=== PATIENT | male | born 1985 | race Caucasian/White ===

== ENCOUNTER 2017-02-11 21:50 | Emergency (ER) | payer OTHER ==
--- NOTE | ~2017-02-11 | ER ---
PATIENT'S NAME: J[facility]EL [facility] AGE: 31 Y [address] ROOM: [place], [place] [address] LOCATION: [facility] ADMIT DATE: 02/11/2017 ER/Outpatient Report DISCHARGE DATE: 02/12/2017 FAMILY PHYSICIAN: PHYSICIAN, NO ATTENDING PHYSICIAN: Joey Mccain Time of Arrival: 2150 hours. Time of Evaluation: 2210 hours. CHIEF COMPLAINT: Body aches, congestion, cough. HISTORY OF PRESENT ILLNESS: This is a 31-year-old male, who presents to the ER. He states he has not been feeling well for the past several days. He states that he was recently in [place] on a trip, and states when he returned he started not feeling well. He states that he has had a cough, sore throat, nasal congestion. He states he has been feeling some chest tightness with deep breaths. He does not know if he has been running any fevers at home. The patient states he was also bit by a tick a week and a half to a couple of weeks ago as well. He has not noticed any rashes to his skin. He denies any vomiting or diarrhea. No other problems at this time. No one else at home is ill. ALLERGIES: NO KNOWN ALLERGIES. MEDICATIONS: Please see medication list in nurse's notes. PAST MEDICAL HISTORY: Negative. PAST SURGICAL HISTORY: [place] teeth removed. SOCIAL HISTORY: Drinks alcohol occasionally. Denies any smoking use. REVIEW OF SYSTEMS: All systems were reviewed and were negative with the exception of those discussed in the HPI. PHYSICAL EXAMINATION: VITAL SIGNS: Weight 6 feet stated, weight 85.4 kg taken, blood pressure is 139/69, pulse 109, respirations 22, temperature 102.9 degrees with a Temporal PATIENT'S NAME: JONEL [facility]AN [facility] AGE: 31 Y [address] ROOM: [place], [place] [address] LOCATION: [facility] ADMIT DATE: 02/11/2017 ER/Outpatient Report DISCHARGE DATE: 02/12/2017 FAMILY PHYSICIAN: PHYSICIAN, NO ATTENDING PHYSICIAN: Joey Mccain Scanner, saturations 98% on room air. [place] Coma Score is 15. GENERAL: An alert, calm, well-developed male, in no acute distress. He does appear not to feel well. HEENT: Head: Normocephalic. Eyes: Pupils are equal and reactive to light. Ears: TMs display good light reflexes bilaterally. HEART: Regular rate and rhythm. LUNGS: Clear to auscultation. He has some faint crackles noted bilaterally posteriorly. ABDOMEN: Soft, nontender. He has good bowel sounds throughout. EXTREMITIES: No clubbing or cyanosis. He has full range of motion of all limbs. SKIN: Warm, dry, and intact. I do not appreciate any rashes, and there is no erythema around where his tick bite was. LABORATORY DATA AND X-RAYS: CBC: White count is 10.2, hemoglobin is 13.8, platelets are 175, ANC is 8.1. Chest x-ray was negative for any infiltrates. Rapid strep was negative. Respiratory panel, he has rhinovirus and enterovirus detected. We did send off for a lyme serum test. IMPRESSION: 1. Febrile illness, most likely due to rhinovirus/enterovirus. 2. Recent tick bite. ASSESSMENT AND PLAN: I did discuss the patient's care with Dr. Mccain. We did give him a dose of ibuprofen here in the emergency room, and the patient will be dismissed home with a prescription for doxycycline to use as directed. Needs to continue to treat his symptoms. Tylenol or ibuprofen as needed for fever, for aches and pains. Continue to push fluids, and I would like him to follow up with his primary care physician in the next couple of days if he is not improving. The patient understands and agrees with care. ARAM LIMA PA-C FOR MD MALIKA JOHNSON/devon /[id number] d: 02/12/17 0149 t: 02/12/17 1804, OUTPATIENT REPORT
[2017-02-11 22:55] LABS: HEMATOCRIT 39.1 % (37.0-53.0); HEMOGLOBIN 13.8 g/dL (12.0-17.0); MCH 31.6 pg (27.0-34.0); MCHC 35.3 gm/dL (32.0-36.5); MCV 89.5 fl (83.0-98.0); MPV 10.4 fl (9.4-12.4); PLATELET COUNT 175 K/uL (150-450); RBC 4.37 M/uL (4.00-6.00); RDW-CV 11.8 % (11.9-14.6); WBC 10.2 K/uL (4.0-11.0)
[2017-02-11 23:22] LABS: ABSOLUTE NEUTROPHIL CT (ANC) 8.1 K/uL (1.4-9.0); BANDED NEUTROPHIL # 0.9 K/uL (0.0-0.1); BANDED NEUTROPHILS % 9 %; LYMPHOCYTE # 0.9 K/uL (0.8-4.0); LYMPHOCYTE % 9 %; MONOCYTE # 1.1 K/uL (0.0-1.0); SEGMENTED NEUTROPHIL # 7.1 K/uL (1.4-9.0); SEGMENTED NEUTROPHIL % 70 %
== END 2017-02-12 00:03 | disposition disaster alternative care site (69) ==
LOC: GMED 21:50
PROVIDERS: Emergency Medicine
DX: R50.9 Fever, unspecified (principal); Z98.890 Other specified postprocedural states